=== PATIENT | female | born 1980 | race Caucasian/White ===

== ENCOUNTER 2024-08-12 08:22 | Outpatient (AMB) | payer OTHER, SELFPAY ==
--- NOTE | 2024-08-12 08:25 | MHC.OFFWIV ---
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 While every effort has been made to ensure accuracy, shuttle inspector errors may have been included. The patient is a 44 year old female who presents to the clinic today with left cervical pain for the past 4 days. She reports that she had been stretching and then felt a pop, had pain in the left shoulder region. She treated it home, and it got better on Monday, but on Monday she went to work and was lifting several boxes and bags, and the pain exacerbated. She reports the pain to be just to the left of the spine in the neck, with some decreased ability to move her neck to the left or down, and some numbness and tingling in her elbow and hand on the left. She is right-hand dominant. She has not previously injured the area nor had any surgeries to the area. She has tried ice, heat, Tylenol, Motrin, and ThermaCare heat pads. [facility] Social History (System 08/20/21 @ 14:36 by Brie Gonzalez) Patient Tobacco Use Status: Former Tobacco user Review of Systems Const All systems reviewed & are unremarkable except as noted in HPI and below Physical Exam Vital Signs: Last Vital Signs Pulse 108 H 08/12/24 08:28 BP 124/90 H 08/12/24 08:28 Pulse Ox 100 08/12/24 08:28 Oxygen Delivery Method Room Air 08/12/24 08:28 BMI result Body Mass Index 33.1 Const General: cooperative, healthy appearing, comfortable, no acute distress and well developed Orientation/consciousness: patient oriented x3 Limitations: no limitations Neck Neck: Yes normal visual inspection Resp Effort & Inspection: normal respiratory effort and able to speak in complete sentences Back/Spine/Pelvis Other: Left paraspinal cervical tenderness, with increased muscle bulging. Head with right lateral rotation intact, left lateral rotation decreased to 10 degrees due to pain. Extension normal. Flexion of head limited due to pain. Bilateral hands grasps equal, strength 5/5. Left shoulder, elbow, full range of motion. Skin General skin exam: no rashes or lesions noted Neuro General: patient oriented x3 Extrem General: Yes normal to inspection Assessment & Plan Assessment & Plan (1) Cervicalgia: Code(s): M54.2 - Cervicalgia Plan: Appears muscular in nature. Advised continuation of NSAIDs, heat/ice, gentle stretches, and muscle relaxer prescribed for symptomatic management. Advised patient to follow up with PCP with worsening or failure to resolve as she may benefit from physical therapy with prolonged symptoms. Plan See above for full details and plan. Medications: New cyclobenzaprine 1 to 2 orally 3 times a day PRN; 10 tabs 0RF muscle spasm Coding Level of Care Code New Pt Level 3 (91705) Diagnoses Cervicalgia M54.2
[2024-08-12 08:28] VITALS: BP 124/90; PULSE 108; O2SAT 100; BMI 33.1
== END 2024-08-12 08:56 | disposition home or self-care (01) ==
PROVIDERS: Visit Provider Registered Nurse
DX: M54.2 Cervicalgia (principal)